=== PATIENT | female | born 1990 | race Caucasian/White ===

== ENCOUNTER 2016-12-11 22:05 | Inpatient (IN) | payer OTHER ==
[~2016-12-11] VITALS: Ht 170.2 cm; Wt 69.6 kg
[2016-12-11 22:05] VITALS: O2SAT 96
[2016-12-11] MEDS ORDERED: HYDROmorphone HCL PF 1 MG/ML VIAL ONE ×2 (22:08→22:12)
[2016-12-11] MEDS ORDERED: ONDANSETRON HCL 4 MG/2 ML VIAL ONE (22:09)
[2016-12-11] MEDS ORDERED: IOHEXOL 350 MG/ML 10 ML VIAL (for RAD DIAG) IV ONE (22:27)
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
[2016-12-11 22:36] LABS: AUTOMATED NEUTROPHIL # 10.2 TH/MM3 (1.8-7.7); BASOPHIL # 0.1 TH/MM3 (0-0.2); BASOPHIL % 0.4 % (0.0-2.0); EOSINOPHIL # 0.5 TH/MM3 (0-0.4); EOSINOPHIL % 3.3 % (0.0-4.0); HEMATOCRIT 34.2 % (35.0-46.0); HEMO FLAGS DIFF FINAL; LYMPH % 23.6 % (9.0-44.0); LYMPHOCYTE # 3.8 TH/MM3 (1.0-4.8); MEAN CELL VOLUME 84.2 FL (80.0-100.0); MEAN CORPUSCULAR HEMOGLOBIN 27.3 PG (27.0-34.0); MEAN CORPUSCULAR HGB CONC 32.5 % (32.0-36.0); MONO % 8.1 % (0.0-8.0); NEUT % 64.6 % (16.0-70.0); PLATELET COUNT 272 TH/MM3 (150-450); RED BLOOD COUNT 4.06 MIL/MM3 (4.00-5.30); RED CELL DISTRIBUTION WIDTH 13.2 % (11.6-17.2); WHITE BLOOD COUNT 15.9 TH/MM3 (4.0-11.0)
[2016-12-11 22:40] LABS: I-STAT POTASSIUM 3.4 MMOL/L (3.5-4.9); I-STAT SODIUM 143 MMOL/L (138-146)
[2016-12-11 22:46] LABS: APTT (PATIENT) 25.5 SEC (24.3-30.1); PROTHROMBIN TIME - PATIENT 10.7 SEC (9.8-11.6)
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
[2016-12-11 22:53] LABS: ALCOHOL LESS THAN 3 MG/DL (0-5)
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
[2016-12-11] MEDS ORDERED: SODIUM CHLORIDE 0.9% FLUSH 10 ML FLUSH IV FLUSH PRN (23:45)
[2016-12-11] MEDS ORDERED: NALOXONE HCL 0.4 MG/ML AMP IV PRN (23:45)
[2016-12-11] MEDS ORDERED: Post-op Orders (for Pharmacy) MISC XX ONE (23:45)
[2016-12-12] VITALS (10 sets, daily range): BP systolic 104–158; BP diastolic 58–94; PULSE 51–90; RESP 16–25; TEMP 97.2–98.8; O2SAT 94–100
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
[2016-12-12] MEDS: fentaNYL 25 MCG/HR PATCH T-DERMAL SCH (00:26)
[2016-12-12] MEDS: oxyCODONE/ACETAMINOPHEN 5 MG/325 MG TAB PO PRN ×4 (02:45→23:15)
[2016-12-12 06:05] LABS: AUTOMATED NEUTROPHIL # 5.7 TH/MM3 (1.8-7.7); BASOPHIL % 0.4 % (0.0-2.0); EOSINOPHIL # 0.1 TH/MM3 (0-0.4); EOSINOPHIL % 1.2 % (0.0-4.0); HEMO FLAGS DIFF FINAL; LYMPH % 23.9 % (9.0-44.0); LYMPHOCYTE # 2.3 TH/MM3 (1.0-4.8); MEAN CELL VOLUME 84.9 FL (80.0-100.0); MEAN CORPUSCULAR HEMOGLOBIN 27.7 PG (27.0-34.0); MEAN CORPUSCULAR HGB CONC 32.6 % (32.0-36.0); MONO % 14.2 % (0.0-8.0); NEUT % 60.3 % (16.0-70.0); PLATELET COUNT 250 TH/MM3 (150-450); RED BLOOD COUNT 4.01 MIL/MM3 (4.00-5.30); WHITE BLOOD COUNT 9.4 TH/MM3 (4.0-11.0)
[2016-12-12] MEDS ORDERED: SODIUM CHLOR 0.9% 1000 ML INJ 1,000 ML IV SCH (06:31)
[2016-12-12 06:32] LABS: BICARBONATE 25.9 MEQ/L (21.0-32.0); POTASSIUM 3.5 MEQ/L (3.5-5.1)
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
[2016-12-12] MEDS ORDERED: MISCELLANEOUS NURSING INFORMATION XX SCH (06:45)
[2016-12-12] MEDS ORDERED: RESP: ALBUTEROL 2.5 MG/IPRATROPIUM 0.5 MG NEB (PRN) INH (06:45)
[2016-12-12] MEDS: SODIUM CHLOR 0.9% 1000 ML INJ 1,000 ML IV SCH ×3 (08:00→13:50)
[2016-12-12] MEDS: SODIUM CHLORIDE 0.9% FLUSH 5 ML FLUSH IV FLUSH SCH ×2 (08:00→21:00)
[2016-12-12] MEDS: DOCUSATE SODIUM 50 MG/SENNA 8.6 MG TAB PO SCH ×2 (08:00→21:08)
[2016-12-12] MEDS ORDERED: SODIUM CHLORIDE 0.9% FLUSH 10 ML FLUSH IV FLUSH SCH (09:00)
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
[2016-12-12] MEDS ORDERED: KETAMINE HCL 500 MG/5 ML VIAL ONE (11:24)
[2016-12-12] MEDS ORDERED: PROPOFOL 200 MG/20 ML AMP IV ONE (12:00)
[2016-12-12] MEDS ORDERED: PHENYLEPH/NS 1000 MCG/10 ML SYR IV ONE (12:00)
[2016-12-12] MEDS ORDERED: ONDANSETRON HCL 4 MG/2 ML VIAL IV PUSH ONE (12:00)
[2016-12-12 12:05] LABS: CKMB 16.9 NG/ML (0.5-3.6)
[2016-12-12] MEDS ORDERED: SUGAMMADEX SODIUM 200 MG/2 ML VIAL IV PUSH ONE ×2 (12:19)
[2016-12-12] MEDS ORDERED: fentaNYL CITRATE 250 MCG/5 ML AMP ONE (12:56)
[2016-12-12] MEDS ORDERED: MIDAZOLAM HCL 2 MG/2 ML VIAL ONE (12:57)
--- NOTE | 2016-12-12 13:13 | OTSOAPIP ---
PATIENT IS OFF FLOOR FOR SURGERY. WILL FOLLOW UP WITH PATIENT TOMORROW FOR EVALUATION. Therapist: Lillian Sharif, OTR/L Signature on file
[2016-12-12] MEDS ORDERED: DO NOT ADM ANY ANTICOAGULANT DRUGS PRN (13:30)
--- NOTE | 2016-12-12 18:17 | PD.CAR.PN ---
CVT Progress Note Subjective/Hospital Course: Patient started developing early signs of compartment syndrome today in form of increased swelling, increased pain and decreased motion both out of proportion to the degree of injury. In addition patient started developing numbness and decreased sensation in the foot. Based on all this decision is made to go ahead with fasciotomy. Patient underwent successful 3 compartment fasciotomy Incisions are clean dressing is intact and Luis has been replaced. Patient has palpable dorsalis pedis and posterior tibial pulses and foot is warm Objective: Vital Signs Date Time Temp Pulse Resp B/P Pulse Ox O2 Delivery O2 Flow Rate FiO2 12/12/16 14:45 97.2 59 16 104/58 100 12/12/16 14:15 97.7 65 15 103/57 99 Nasal Cannula 2.5 12/12/16 13:45 62 15 108/57 99 Nasal Cannula 2.5 12/12/16 13:30 61 15 108/66 99 Nasal Cannula 2.5 12/12/16 13:15 67 15 113/63 96 Nasal Cannula 2.5 12/12/16 13:00 97 14 118/63 96 Nasal Cannula 2.5 12/12/16 12:45 82 12 118/63 100 Simple Mask 10 12/12/16 12:44 97.5 85 12 128/61 100 Simple Mask 10 12/12/16 10:00 75 12/12/16 09:03 98 21 12/12/16 08:00 97.8 83 22 158/94 94 12/12/16 08:00 51 12/12/16 07:00 95 Room Air 12/12/16 06:00 54 12/12/16 04:00 98.8 73 20 117/70 100 12/12/16 04:00 73 12/12/16 03:45 20 12/12/16 02:00 74 12/12/16 01:31 22 12/12/16 00:00 88 12/12/16 00:00 98.3 88 25 119/60 97 12/11/16 22:05 96 5.00 12/11/16 22:05 96 Nasal Cannula 5.00 Result Diagram: 12/12/16 0542 12/12/16 0542 Sidra Waddell MD Dec 12, 2016 18:17
[2016-12-12] MEDS: FAMOTIDINE 20 MG TAB PO SCH (21:07)
[2016-12-12] MEDS: MAGNESIUM HYDROXIDE SUSP 30 ML CUP PO SCH (21:07)
[2016-12-12] MEDS: MORPHINE SULFATE 4 MG/ML INJ IV PRN (21:08)
[2016-12-13] VITALS (7 sets, daily range): BP systolic 98–113; BP diastolic 56–65; PULSE 63–84; RESP 16–17; TEMP 96.2–98.7; O2SAT 99–100
[2016-12-13 01:16] LABS: CKMB 9.6 NG/ML (0.5-3.6)
[2016-12-13] MEDS: CHLORHEXIDINE GLUCONATE 2 % 1 PACK (2 CLOTHS) TOP SCH (02:35)
[2016-12-13] MEDS: SODIUM CHLOR 0.9% 1000 ML INJ 1,000 ML IV SCH ×2 (02:35→16:00)
[2016-12-13] MEDS: oxyCODONE/ACETAMINOPHEN 5 MG/325 MG TAB PO PRN ×5 (03:10→19:59)
--- NOTE | 2016-12-13 06:29 | PD.ORT.PN ---
Subjective Subjective Remarks Resting comfortably. No new complaints Objective Vitals Vital Signs Date Time Temp Pulse Resp B/P Pulse Ox O2 Delivery O2 Flow Rate FiO2 12/13/16 04:00 96.9 63 16 106/65 100 12/13/16 00:00 98.7 79 17 105/56 99 12/12/16 19:58 98.7 90 16 108/66 99 12/12/16 19:26 99 21 12/12/16 14:45 97.2 59 16 104/58 100 12/12/16 14:15 97.7 65 15 103/57 99 Nasal Cannula 2.5 12/12/16 13:45 62 15 108/57 99 Nasal Cannula 2.5 12/12/16 13:30 61 15 108/66 99 Nasal Cannula 2.5 12/12/16 13:15 67 15 113/63 96 Nasal Cannula 2.5 12/12/16 13:00 97 14 118/63 96 Nasal Cannula 2.5 12/12/16 12:45 82 12 118/63 100 Simple Mask 10 12/12/16 12:44 97.5 85 12 128/61 100 Simple Mask 10 12/12/16 10:00 75 12/12/16 09:03 98 21 12/12/16 08:00 97.8 83 22 158/94 94 12/12/16 08:00 51 12/12/16 07:00 95 Room Air I/O 12/12/16 12/12/16 12/12/16 12/13/16 12/13/16 12/13/16 07:00 15:00 23:00 07:00 15:00 23:00 Intake Total 800 ml 1623 ml 600 ml 360 ml Output Total 25 ml Balance 800 ml 1598 ml 600 ml 360 ml Intake Oral 400 ml 50 ml 600 ml 360 ml IV Total 400 ml 773 ml Other 800 ml Output Estimated Blood Loss 25 ml # Voids 1 2 2 1 # Bowel Movements 0 Result Diagram: 12/12/16 0542 12/12/16 0542 Objective Remarks Left lower extremity: No pain with hip motion. Compartments soft over thigh. Dressings intact over lower leg below knee compartments soft and mild drainage. Diminished sensation over dorsum of foot and toes. Intact sensation on plantar surface. Weak dorsiflexion. Good plantar flexion. Good capillary refills Assessment & Plan Assessment and Plan Fasciotomy left leg due to compartment syndrome by Dr. Oli Hanna will be signing off and Dr. Baird will be assuming continued care Adebayo Hodges Jr. Dec 13, 2016 06:29
[2016-12-13 07:05] LABS: AUTOMATED NEUTROPHIL # 3.8 TH/MM3 (1.8-7.7); BASOPHIL % 0.4 % (0.0-2.0); EOSINOPHIL # 0.4 TH/MM3 (0-0.4); EOSINOPHIL % 4.7 % (0.0-4.0); HEMATOCRIT 37.2 % (35.0-46.0); HEMO FLAGS DIFF FINAL; LYMPH % 29.2 % (9.0-44.0); LYMPHOCYTE # 2.2 TH/MM3 (1.0-4.8); MEAN CORPUSCULAR HEMOGLOBIN 27.8 PG (27.0-34.0); MEAN CORPUSCULAR HGB CONC 32.8 % (32.0-36.0); MONO % 15.4 % (0.0-8.0); NEUT % 50.3 % (16.0-70.0); PLATELET COUNT 256 TH/MM3 (150-450); RED BLOOD COUNT 4.38 MIL/MM3 (4.00-5.30); RED CELL DISTRIBUTION WIDTH 13.1 % (11.6-17.2); WHITE BLOOD COUNT 7.6 TH/MM3 (4.0-11.0)
[2016-12-13 07:25] LABS: ALT (GPT) 27 U/L (10-53); ANION GAP 9 MEQ/L (5-15); AST (GOT) 42 U/L (15-37); BICARBONATE 26.4 MEQ/L (21.0-32.0); BLOOD UREA NITROGEN 3 MG/DL (7-18); CHLORIDE 105 MEQ/L (98-107); GLOMERULAR FILTRATION RATE 133 ML/MIN (>89); POTASSIUM 3.5 MEQ/L (3.5-5.1); SODIUM (NA) 140 MEQ/L (136-145)
[2016-12-13 07:40] LABS: ALKALINE PHOSPHATASE 42 U/L (45-117); CREATINE KINASE 1148 U/L (26-192); TOTAL BILIRUBIN ADULT 0.7 MG/DL (0.2-1.0)
[2016-12-13 08:08] LABS: CKMB 6.1 NG/ML (0.5-3.6)
[2016-12-13] MEDS: DOCUSATE SODIUM 50 MG/SENNA 8.6 MG TAB PO SCH ×2 (09:35→21:27)
[2016-12-13] MEDS: GABAPENTIN 300 MG CAP PO SCH ×3 (09:35→19:58)
[2016-12-13] MEDS: LACTULOSE SYRUP 20 GM/30 ML CUP PO SCH (09:35)
[2016-12-13] MEDS: MORPHINE SULFATE 4 MG/ML INJ IV PRN (09:35)
[2016-12-13] MEDS: SODIUM CHLORIDE 0.9% FLUSH 5 ML FLUSH IV FLUSH SCH ×2 (09:36→21:00)
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
[2016-12-13] MEDS: ENOXAPARIN SODIUM 30 MG/0.3 ML SYRINGE SQ SCH (13:45)
[2016-12-13] MEDS ORDERED: SENN1TAB PO (14:28)
[2016-12-13] MEDS ORDERED: MAGN400S PO (14:28)
[2016-12-13] MEDS: KETOROLAC TROMETHAMINE 30 MG/ML (IVP) VIAL IV PUSH SCH ×3 (15:41→23:58)
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
[2016-12-13] MEDS: FAMOTIDINE 20 MG TAB PO SCH (21:26)
[2016-12-13] MEDS: MAGNESIUM HYDROXIDE SUSP 30 ML CUP PO SCH (21:26)
[2016-12-14] VITALS (7 sets, daily range): BP systolic 94–122; BP diastolic 58–64; PULSE 72–88; RESP 16–18; TEMP 97.1–99.8; O2SAT 98–100
[2016-12-14] MEDS: SODIUM CHLOR 0.9% 1000 ML INJ 1,000 ML IV SCH ×3 (02:00→22:00)
[2016-12-14] MEDS: ENOXAPARIN SODIUM 30 MG/0.3 ML SYRINGE SQ SCH ×2 (02:42→13:28)
[2016-12-14] MEDS: CHLORHEXIDINE GLUCONATE 2 % 1 PACK (2 CLOTHS) TOP SCH (03:29)
[2016-12-14] MEDS: oxyCODONE/ACETAMINOPHEN 5 MG/325 MG TAB PO PRN ×3 (04:39→22:13)
[2016-12-14] MEDS: KETOROLAC TROMETHAMINE 30 MG/ML (IVP) VIAL IV PUSH SCH ×3 (06:31→17:32)
[2016-12-14] MEDS: SODIUM CHLORIDE 0.9% FLUSH 5 ML FLUSH IV FLUSH SCH ×2 (09:00→22:12)
[2016-12-14 10:08] LABS: HEMATOCRIT 33.7 % (35.0-46.0); MEAN CELL VOLUME 83.6 FL (80.0-100.0); MEAN CORPUSCULAR HEMOGLOBIN 28.1 PG (27.0-34.0); MEAN CORPUSCULAR HGB CONC 33.6 % (32.0-36.0); PLATELET COUNT 261 TH/MM3 (150-450); RED BLOOD COUNT 4.03 MIL/MM3 (4.00-5.30); RED CELL DISTRIBUTION WIDTH 12.9 % (11.6-17.2); REVIEW FLAG FINAL; WHITE BLOOD COUNT 8.9 TH/MM3 (4.0-11.0)
[2016-12-14] MEDS: GABAPENTIN 300 MG CAP PO SCH ×3 (10:16→17:31)
[2016-12-14] MEDS: DOCUSATE SODIUM 50 MG/SENNA 8.6 MG TAB PO SCH ×2 (10:16→22:12)
[2016-12-14] MEDS: LACTULOSE SYRUP 20 GM/30 ML CUP PO SCH (10:17)
[2016-12-14 10:26] LABS: BICARBONATE 27.2 MEQ/L (21.0-32.0); POTASSIUM 3.8 MEQ/L (3.5-5.1)
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
[2016-12-14] MEDS: MAGNESIUM HYDROXIDE SUSP 30 ML CUP PO SCH (22:12)
[2016-12-14] MEDS: FAMOTIDINE 20 MG TAB PO SCH (22:12)
[2016-12-15] MEDS: KETOROLAC TROMETHAMINE 30 MG/ML (IVP) VIAL IV PUSH SCH ×5 (00:07→23:43)
[2016-12-15] MEDS: fentaNYL 25 MCG/HR PATCH T-DERMAL SCH (00:08)
[2016-12-15] MEDS: REMOVE OLD PATCH T-DERMAL SCH (00:08)
[2016-12-15 00:20] VITALS: BP 108/57; PULSE 79; RESP 16; TEMP 98; O2SAT 98
[2016-12-15] MEDS: ENOXAPARIN SODIUM 30 MG/0.3 ML SYRINGE SQ SCH ×2 (01:34→13:36)
[2016-12-15] MEDS: CHLORHEXIDINE GLUCONATE 2 % 1 PACK (2 CLOTHS) TOP SCH (04:00)
[2016-12-15] MEDS: oxyCODONE/ACETAMINOPHEN 5 MG/325 MG TAB PO PRN ×4 (05:50→23:43)
[2016-12-15 08:00] VITALS: BP 102/58; PULSE 81; RESP 18; TEMP 97.4; O2SAT 99
[2016-12-15] MEDS: SODIUM CHLOR 0.9% 1000 ML INJ 1,000 ML IV SCH ×2 (08:00→17:38)
[2016-12-15] MEDS: DOCUSATE SODIUM 50 MG/SENNA 8.6 MG TAB PO SCH ×2 (09:02→21:08)
[2016-12-15] MEDS: SODIUM CHLORIDE 0.9% FLUSH 5 ML FLUSH IV FLUSH SCH ×2 (09:02→21:00)
[2016-12-15] MEDS: GABAPENTIN 300 MG CAP PO SCH ×3 (09:02→17:38)
[2016-12-15] MEDS: LACTULOSE SYRUP 20 GM/30 ML CUP PO SCH (09:02)
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
[2016-12-15 12:00] VITALS: BP 115/63; PULSE 76; RESP 18; TEMP 96.9; O2SAT 100
[2016-12-15] MEDS: HYDROmorphone HCL PF 1 MG/ML VIAL IV PUSH PRN ×2 (13:51→17:29)
[2016-12-15] MEDS: SODIUM CHLORIDE 0.9% FLUSH 5 ML FLUSH IV FLUSH PRN ×2 (13:51→17:29)
[2016-12-15 14:19] VITALS: O2SAT 96
[2016-12-15 16:00] VITALS: BP 107/59; PULSE 82; RESP 18; TEMP 96.7; O2SAT 99
[2016-12-15] MEDS: ONDANSETRON HCL 4 MG/2 ML VIAL IV PRN (17:38)
[2016-12-15 20:10] VITALS: BP_SYST 107; BP_SYST 158; BP_DIAS 65; BP_DIAS 72; PULSE 78; PULSE 94; RESP 16; RESP 17; TEMP 96.8; TEMP 98.8; O2SAT 100; O2SAT 99
[2016-12-15] MEDS: FAMOTIDINE 20 MG TAB PO SCH (21:07)
[2016-12-15] MEDS: MAGNESIUM HYDROXIDE SUSP 30 ML CUP PO SCH (21:08)
[2016-12-16] VITALS (7 sets, daily range): BP systolic 103–111; BP diastolic 51–58; PULSE 78–124; RESP 17–19; TEMP 97.8–101.6; O2SAT 92–100
[2016-12-16] MEDS ORDERED: INSULIN HUMAN REGULAR 1,000 UNITS/10 ML VIAL SQ PRN (00:15)
[2016-12-16] MEDS ORDERED: SODIUM CHLORID 0.9% 500 ML IV PRN (00:15)
[2016-12-16] MEDS ORDERED: LACTATED RINGER'S 1000 ML IV PRN (00:15)
[2016-12-16] MEDS ORDERED: POVIDONE IODINE 5% (ANTISEPSIS KIT) 4 APPLICATIONS EACH NARE PRN (00:15)
[2016-12-16] MEDS ORDERED: METOPROLOL TARTRATE 25 MG TAB PO PRN (00:15)
[2016-12-16] MEDS ORDERED: CHLORHEXIDINE GLUCONATE 2 % 1 PACK (2 CLOTHS) TOPICAL PRN (00:15)
[2016-12-16] MEDS: ENOXAPARIN SODIUM 30 MG/0.3 ML SYRINGE SQ SCH ×2 (01:26→13:30)
[2016-12-16] MEDS: CHLORHEXIDINE GLUCONATE 2 % 1 PACK (2 CLOTHS) TOP SCH (04:00)
[2016-12-16] MEDS: SODIUM CHLOR 0.9% 1000 ML INJ 1,000 ML IV SCH ×2 (04:00→14:05)
[2016-12-16] MEDS: KETOROLAC TROMETHAMINE 30 MG/ML (IVP) VIAL IV PUSH SCH ×3 (06:29→18:08)
[2016-12-16] MEDS: ONDANSETRON HCL 4 MG/2 ML VIAL IV PRN ×2 (06:29→19:57)
[2016-12-16] MEDS: HYDROmorphone HCL PF 1 MG/ML VIAL IV PUSH PRN ×3 (06:46→19:57)
[2016-12-16] MEDS: LACTULOSE SYRUP 20 GM/30 ML CUP PO SCH (08:49)
[2016-12-16] MEDS: GABAPENTIN 300 MG CAP PO SCH ×3 (08:49→18:07)
[2016-12-16] MEDS: SODIUM CHLORIDE 0.9% FLUSH 5 ML FLUSH IV FLUSH SCH ×2 (08:49→19:58)
[2016-12-16] MEDS: DOCUSATE SODIUM 50 MG/SENNA 8.6 MG TAB PO SCH ×2 (08:49→19:59)
[2016-12-16] MEDS ORDERED: VANCOMYCIN HCL 1000 MG VIAL ONE (11:11)
[2016-12-16] MEDS ORDERED: ceFAZolin INJ 1,000 MG VIAL IV ONE (11:13)
[2016-12-16] MEDS ORDERED: PROPOFOL 200 MG/20 ML AMP IV ONE (12:00)
[2016-12-16] MEDS ORDERED: ONDANSETRON HCL 4 MG/2 ML VIAL IV PUSH ONE (12:00)
[2016-12-16] MEDS ORDERED: *HYDROmorphone PF 1 MG VIAL PERIprocedural Use ONLY ONE (12:30)
[2016-12-16] MEDS ORDERED: *MEPERIDINE 25 MG INJ VIAL PERIprocedural Use ONLY ONE (12:35)
[2016-12-16] MEDS ORDERED: DO NOT ADM ANY ANTICOAGULANT DRUGS PRN (13:45)
[2016-12-16] MEDS: FAMOTIDINE 20 MG TAB PO SCH (19:58)
[2016-12-16] MEDS: MAGNESIUM HYDROXIDE SUSP 30 ML CUP PO SCH (19:59)
[2016-12-17] VITALS (7 sets, daily range): BP systolic 100–111; BP diastolic 55–60; PULSE 73–90; RESP 16–18; TEMP 96.7–98.7; O2SAT 98–100
[2016-12-17] MEDS: oxyCODONE/ACETAMINOPHEN 5 MG/325 MG TAB PO PRN ×6 (00:09→21:38)
[2016-12-17] MEDS: KETOROLAC TROMETHAMINE 30 MG/ML (IVP) VIAL IV PUSH SCH ×4 (00:09→17:15)
[2016-12-17] MEDS: ENOXAPARIN SODIUM 30 MG/0.3 ML SYRINGE SQ SCH ×2 (00:10→17:17)
[2016-12-17] MEDS: CHLORHEXIDINE GLUCONATE 2 % 1 PACK (2 CLOTHS) TOP SCH (02:50)
[2016-12-17] MEDS: ONDANSETRON HCL 4 MG/2 ML VIAL IV PRN (05:12)
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
[2016-12-17] MEDS: SODIUM CHLORIDE 0.9% FLUSH 5 ML FLUSH IV FLUSH SCH ×2 (09:00→21:00)
[2016-12-17] MEDS: SODIUM CHLOR 0.9% 1000 ML INJ 1,000 ML IV SCH ×3 (10:00→20:00)
[2016-12-17] MEDS: GABAPENTIN 300 MG CAP PO SCH ×3 (10:38→18:00)
[2016-12-17] MEDS: DOCUSATE SODIUM 50 MG/SENNA 8.6 MG TAB PO SCH ×2 (10:39→21:40)
[2016-12-17] MEDS: LACTULOSE SYRUP 20 GM/30 ML CUP PO SCH (10:40)
--- NOTE | 2016-12-17 15:29 | HHI.PR ---
Subjective Subjective Notes pt lyiny in bed no new complaint Objective Vitals/I&O Vital Signs Date Time Temp Pulse Resp B/P Pulse Ox O2 Delivery O2 Flow Rate FiO2 12/17/16 14:23 98 21 12/17/16 12:00 96.9 90 18 111/55 12/16/16 18:04 Nasal Cannula 2.00 Radiology Last 48 hours Impressions Knee X-Ray 12/11/162228 Signed Impressions: Service Date/Time: Sunday, December 11, 2016 23:44 - CONCLUSION: Nondisplaced proximal fibular fracture. Dieudonne Ledesma MD Foot X-Ray 12/11/162228 Signed Impressions: Service Date/Time: Sunday, December 11, 2016 23:51 - CONCLUSION: Negative exam. Dieudonne Ledesma MD Femur X-Ray 12/11/162228 Signed Impressions: Service Date/Time: Sunday, December 11, 2016 23:40 - CONCLUSION: Negative exam. Dieudonne Ledesma MD Lumbar Spine CT 12/11/162218 Signed Impressions: Service Date/Time: Sunday, December 11, 2016 22:25 - CONCLUSION: No evidence of fracture. Anant Frank MD Abdomen/Pelvis CT 12/11/162218 Signed Impressions: Service Date/Time: Sunday, December 11, 2016 22:25 - CONCLUSION: No acute findings in the abdomen and pelvis. Anant Frank MD Pelvis X-Ray 12/11/162205 Signed Impressions: Service Date/Time: Sunday, December 11, 2016 22:03 - CONCLUSION: No gross evidence of fracture. Anant Frank MD Chest X-Ray 12/11/162205 Signed Impressions: Service Date/Time: Sunday, December 11, 2016 22:03 - CONCLUSION: No acute cardiopulmonary disease on limited single view of the chest. Anant Frank MD Abdomen: Non-distended Extremities: Perfused A/P Problem List: (1) Crushing injury of left leg (2) Left fibular fracture Assessment and Plan patient with crush injury to leg s/p fasciotomy partial closure yesterday now with wound vac Vac to be changed in beginning of week Cont pain management Problem Qualifiers (1) Crushing injury of left leg: Qualified Code: S87.82XA - Crushing injury of left lower extremity, initial encounter (2) Left fibular fracture: Qualified Code: S82.832A - Closed fracture of proximal end of left fibula, unspecified fracture morphology, initial encounter Augusto Jacobsen MD Dec 17, 2016 15:29
[2016-12-17] MEDS: POLYETHYLENE GLYCOL 17 GM PKG PO PRN (19:13)
[2016-12-17] MEDS ORDERED: SIMETHICONE 80 MG CHEWABLE TAB PO PRN (19:15)
[2016-12-17] MEDS: MAGNESIUM HYDROXIDE SUSP 30 ML CUP PO SCH (21:39)
[2016-12-17] MEDS: FAMOTIDINE 20 MG TAB PO SCH (21:40)
[2016-12-18] MEDS: REMOVE OLD PATCH T-DERMAL SCH
[2016-12-18 00:15] VITALS: BP 99/56; PULSE 92; RESP 16; TEMP 99.5; O2SAT 99
[2016-12-18] MEDS: KETOROLAC TROMETHAMINE 30 MG/ML (IVP) VIAL IV PUSH SCH ×2 (00:57→06:00)
[2016-12-18] MEDS: fentaNYL 25 MCG/HR PATCH T-DERMAL SCH (00:59)
[2016-12-18] MEDS: ENOXAPARIN SODIUM 30 MG/0.3 ML SYRINGE SQ SCH ×2 (00:59→13:30)
[2016-12-18] MEDS: CHLORHEXIDINE GLUCONATE 2 % 1 PACK (2 CLOTHS) TOP SCH (01:00)
[2016-12-18] MEDS: oxyCODONE/ACETAMINOPHEN 5 MG/325 MG TAB PO PRN ×3 (01:32→23:19)
[2016-12-18 04:10] VITALS: BP 96/51; PULSE 80; RESP 16; TEMP 97.9; O2SAT 98
[2016-12-18] MEDS: SODIUM CHLOR 0.9% 1000 ML INJ 1,000 ML IV SCH ×2 (06:00→16:00)
[2016-12-18 08:00] VITALS: BP 95/55; PULSE 93; RESP 17; TEMP 98.1; O2SAT 100
[2016-12-18] MEDS: GABAPENTIN 300 MG CAP PO SCH ×3 (09:00→17:02)
[2016-12-18] MEDS: DOCUSATE SODIUM 50 MG/SENNA 8.6 MG TAB PO SCH ×2 (09:00→20:31)
[2016-12-18] MEDS: LACTULOSE SYRUP 20 GM/30 ML CUP PO SCH (09:00)
[2016-12-18] MEDS: SODIUM CHLORIDE 0.9% FLUSH 5 ML FLUSH IV FLUSH SCH ×2 (09:00→20:31)
[2016-12-18 12:00] VITALS: BP 114/61; PULSE 90; RESP 18; TEMP 97.3; O2SAT 98
[2016-12-18 16:00] VITALS: BP 119/56; PULSE 92; RESP 17; TEMP 97.9; O2SAT 99
[2016-12-18 20:25] VITALS: BP 108/54; PULSE 109; RESP 17; TEMP 98.8; O2SAT 100
[2016-12-18] MEDS: FAMOTIDINE 20 MG TAB PO SCH (20:31)
[2016-12-18] MEDS: MAGNESIUM HYDROXIDE SUSP 30 ML CUP PO SCH (20:31)
[2016-12-18] MEDS: HYDROmorphone HCL PF 1 MG/ML VIAL IV PUSH PRN (21:50)
[2016-12-18] MEDS: ONDANSETRON HCL 4 MG/2 ML VIAL IV PRN (21:51)
[2016-12-19 00:19] VITALS: BP 102/56; PULSE 92; RESP 17; TEMP 99.6; O2SAT 97
[2016-12-19] MEDS: ENOXAPARIN SODIUM 30 MG/0.3 ML SYRINGE SQ SCH ×2 (00:43→14:25)
[2016-12-19] MEDS: SODIUM CHLOR 0.9% 1000 ML INJ 1,000 ML IV SCH ×2 (00:45→12:00)
[2016-12-19] MEDS: CHLORHEXIDINE GLUCONATE 2 % 1 PACK (2 CLOTHS) TOP SCH (01:59)
[2016-12-19] MEDS: HYDROmorphone HCL PF 1 MG/ML VIAL IV PUSH PRN ×5 (03:03→22:13)
[2016-12-19 04:30] VITALS: BP 97/57; PULSE 85; RESP 17; TEMP 97.8; O2SAT 99
[2016-12-19] MEDS: oxyCODONE/ACETAMINOPHEN 5 MG/325 MG TAB PO PRN ×4 (04:43→18:46)
[2016-12-19 08:00] VITALS: BP 97/56; PULSE 75; RESP 16; TEMP 96.1; O2SAT 98
[2016-12-19] MEDS: SODIUM CHLORIDE 0.9% FLUSH 5 ML FLUSH IV FLUSH SCH ×2 (09:00→22:04)
[2016-12-19] MEDS: LACTULOSE SYRUP 20 GM/30 ML CUP PO SCH (09:00)
[2016-12-19] MEDS: DOCUSATE SODIUM 50 MG/SENNA 8.6 MG TAB PO SCH ×2 (09:00→22:04)
[2016-12-19] MEDS: GABAPENTIN 300 MG CAP PO SCH (09:00)
[2016-12-19 12:00] VITALS: BP 102/56; PULSE 68; RESP 16; TEMP 96.9; O2SAT 96
--- NOTE | 2016-12-19 13:36 | HHI.PR ---
Subjective Subjective Notes Complains of worsening left calf pain LUE Fentanyl patch not in place- RN to investigate Objective Vitals/I&O Vital Signs Date Time Temp Pulse Resp B/P (MAP) Pulse Ox O2 Delivery O2 Flow Rate FiO2 12/19/16 04:30 97.8 85 17 97/57 (70) 99 12/17/16 14:23 21 12/16/16 18:04 Nasal Cannula 2.00 Labs Laboratory Tests Test 12/11/16 22:07 12/13/16 06:19 12/14/16 08:00 Bedside Hemoglobin 11.9 G/DL Bedside Hematocrit 35.0 % Prothrombin Time 10.7 SEC Prothromb Time International Ratio 1.0 RATIO Activated Partial Thromboplast Time 25.5 SEC Bedside Sodium 143 MMOL/L Bedside Potassium 3.4 MMOL/L Bedside Chloride 105 MMOL/L Bedside Blood Urea Nitrogen LESS THAN 3 MG/DL Bedside Creatinine 0.6 MG/DL Bedside Glucose 96 MG/DL Ethyl Alcohol Level LESS THAN 3 MG/DL Neutrophils (%) (Auto) 50.3 % Lymphocytes (%) (Auto) 29.2 % Monocytes (%) (Auto) 15.4 % Eosinophils (%) (Auto) 4.7 % Basophils (%) (Auto) 0.4 % Neutrophils # (Auto) 3.8 TH/MM3 Lymphocytes # (Auto) 2.2 TH/MM3 Monocytes # (Auto) 1.2 TH/MM3 Eosinophils # (Auto) 0.4 TH/MM3 Basophils # (Auto) 0.0 TH/MM3 CBC Comment DIFF FINAL Differential Comment Blood Urea Nitrogen 3 MG/DL 8 MG/DL Creatinine 0.55 MG/DL 0.57 MG/DL Random Glucose 78 MG/DL 93 MG/DL Total Protein 6.6 GM/DL Albumin 3.1 GM/DL Calcium Level 8.2 MG/DL 8.1 MG/DL Alkaline Phosphatase 42 U/L Aspartate Amino Transf (AST/SGOT) 42 U/L Alanine Aminotransferase (ALT/SGPT) 27 U/L Total Bilirubin 0.7 MG/DL Sodium Level 140 MEQ/L 137 MEQ/L Potassium Level 3.5 MEQ/L 3.8 MEQ/L Chloride Level 105 MEQ/L 103 MEQ/L Carbon Dioxide Level 26.4 MEQ/L 27.2 MEQ/L Total Creatine Kinase 1148 U/L Creatine Kinase MB 6.1 NG/ML Creatine Kinase MB % 0.5 % White Blood Count 8.9 TH/MM3 Red Blood Count 4.03 MIL/MM3 Hemoglobin 11.3 GM/DL Hematocrit 33.7 % Mean Corpuscular Volume 83.6 FL Mean Corpuscular Hemoglobin 28.1 PG Mean Corpuscular Hemoglobin Concent 33.6 % Red Cell Distribution Width 12.9 % Platelet Count 261 TH/MM3 Mean Platelet Volume 7.9 FL Anion Gap 7 MEQ/L Estimat Glomerular Filtration Rate 127 ML/MIN Radiology Last 48 hours Impressions Knee X-Ray 12/11/162228 Signed Impressions: Service Date/Time: Sunday, December 11, 2016 23:44 - CONCLUSION: Nondisplaced proximal fibular fracture. Dieudonne Ledesma MD Foot X-Ray 12/11/162228 Signed Impressions: Service Date/Time: Sunday, December 11, 2016 23:51 - CONCLUSION: Negative exam. Dieudonne Ledesma MD Femur X-Ray 12/11/162228 Signed Impressions: Service Date/Time: Sunday, December 11, 2016 23:40 - CONCLUSION: Negative exam. Dieudonne Ledesma MD Lumbar Spine CT 12/11/162218 Signed Impressions: Service Date/Time: Sunday, December 11, 2016 22:25 - CONCLUSION: No evidence of fracture. nAant Frank MD Abdomen/Pelvis CT 12/11/162218 Signed Impressions: Service Date/Time: Sunday, December 11, 2016 22:25 - CONCLUSION: No acute findings in the abdomen and pelvis. Anant Frank MD Pelvis X-Ray 12/11/162205 Signed Impressions: Service Date/Time: Sunday, December 11, 2016 22:03 - CONCLUSION: No gross evidence of fracture. Anant Frank MD Chest X-Ray 12/11/162205 Signed Impressions: Service Date/Time: Sunday, December 11, 2016 22:03 - CONCLUSION: No acute cardiopulmonary disease on limited single view of the chest. Anant Frank MD Narrative Exam GENERAL: 26 year old well-nourished, well developed female lying in bed in no distress. SKIN: Warm and dry. HEAD: Normocephalic. ENT: No nasal bleeding or discharge. Mucous membranes pink and moist. NECK: Trachea midline. No JVD. CARDIOVASCULAR: Regular rate and rhythm. RESPIRATORY: No accessory muscle use. Lungs clear to auscultation. Breath sounds equal bilaterally. GASTROINTESTINAL: Abdomen soft, non-tender, nondistended. + BS. MUSCULOSKELETAL: Extremities without cyanosis, or edema. LEFT lateral calf with wound vac sponge stapled in place- proximal sutures C/D/I. LEFT medial calf sutures C/D/I. Mild erythema noted at incision sites. NEUROLOGICAL: Awake and alert. Normal speech. A/P Problem List: (1) Crushing injury of left leg ICD Codes: S87.82XA - Crushing injury of left lower leg, initial encounter Status: Acute (2) Left fibular fracture ICD Codes: S82.402A - Unspecified fracture of shaft of left fibula, initial encounter for closed fracture Status: Acute Assessment and Plan INJURIES: LEFT hairline fx of proximal fibula ? LEFT lateral malleolus fx 12/12: LEFT Lower extremity Fasciotomy 12/16: LEFT lower extremity washout, partial closure and wound vac placement Diet: Regular Pulm: IS Pain: Percocet. Dilaudid IV. Fentanyl patch and Neurontin increased. Activity: OOB. PT and OT ordered. GI: Pepcid HS Bowel: Char-colace BID. MOM. Lactulose. LBM: 12/19 DVT: SCD's, Lovenox 30 BID LEFT hairline fx of proximal fibula, Questionable LEFT lateral malleolus fx Orthopedics consulted and cleared for discharge 12/12: LEFT Lower extremity Fasciotomy 12/16: Washout and closure of left leg fasciotomy, wound VAC placement Wound VAC discontinued today, Daily wet-to-dry dressing changes to left lower extremity Pain control OOB- PT and OT WBAT LLE Plan of care discussed with patient and father at bedside. Case management consulted to assist discharge planning. Plan to DC 1-2 days when pain better controlled. Attending Statement patient seen at bedside c/o calf pain c/o lip cold sore replace patch acyclovir Attestation The exam, history, and the medical decision-making described in the above note were completed with the assistance of the mid-level provider. I reviewed and agree with the findings presented. I attest that I had a [id number] encounter with the patient on the same day, and personally performed and documented my assessment and findings in the medical record. Problem Qualifiers (1) Crushing injury of left leg: (2) Left fibular fracture: Earl Forbes Dec 19, 2016 13:36 Herbert Diaz MD Dec 22, 2016 21:22
[2016-12-19] MEDS: ACYCLOVIR 200 MG CAP PO SCH ×3 (14:00→22:04)
[2016-12-19 16:00] VITALS: BP 125/75; PULSE 103; RESP 16; TEMP 96; O2SAT 95
[2016-12-19] MEDS: GABAPENTIN 400 MG CAP PO SCH (17:49)
[2016-12-19] MEDS: POLYETHYLENE GLYCOL 17 GM PKG PO PRN (17:56)
[2016-12-19] MEDS ORDERED: REMOVE OLD DURAGESIC (FENTANYL) PATCH T-DERMAL SCH (20:00)
[2016-12-19] MEDS ORDERED: fentaNYL 50 MCG/HR PATCH T-DERMAL SCH (20:00)
[2016-12-19 20:20] VITALS: BP 99/56; PULSE 94; RESP 18; TEMP 96.4; O2SAT 100
[2016-12-19] MEDS: MAGNESIUM HYDROXIDE SUSP 30 ML CUP PO SCH (22:03)
[2016-12-19] MEDS: FAMOTIDINE 20 MG TAB PO SCH (22:04)
[2016-12-20 00:20] VITALS: BP 106/56; PULSE 85; RESP 18; TEMP 96.8; O2SAT 97
[2016-12-20] MEDS: oxyCODONE/ACETAMINOPHEN 5 MG/325 MG TAB PO PRN ×3 (02:45→12:46)
[2016-12-20] MEDS: ENOXAPARIN SODIUM 30 MG/0.3 ML SYRINGE SQ SCH ×2 (02:45→12:45)
[2016-12-20] MEDS: ACYCLOVIR 200 MG CAP PO SCH ×3 (06:06→12:46)
[2016-12-20 08:00] VITALS: BP 93/55; PULSE 82; RESP 18; TEMP 96.6; O2SAT 99
[2016-12-20] MEDS: DOCUSATE SODIUM 50 MG/SENNA 8.6 MG TAB PO SCH (08:40)
[2016-12-20] MEDS: GABAPENTIN 400 MG CAP PO SCH ×2 (08:40→12:46)
[2016-12-20] MEDS: SODIUM CHLORIDE 0.9% FLUSH 5 ML FLUSH IV FLUSH SCH (08:41)
[2016-12-20] MEDS: LACTULOSE SYRUP 20 GM/30 ML CUP PO SCH (08:41)
[2016-12-20 12:00] VITALS: BP 103/64; PULSE 78; RESP 18; TEMP 96; O2SAT 100
[2016-12-20] MEDS ORDERED: FENT50T T-DERMAL (12:30)
[2016-12-20] MEDS ORDERED: ENOX30P SQ (12:30)
[2016-12-20] MEDS ORDERED: OXYC1TAB63 PO (12:30)
[2016-12-20] MEDS ORDERED: NEUR400C PO (12:30)
[2016-12-20] MEDS ORDERED: ACYC200C66 PO (12:30)
[2016-12-20] MEDS ORDERED: Lactulose PO (12:30)
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
[2016-12-20] MEDS ORDERED: OXYC-395 PO (14:46)
[2016-12-29] MEDS ORDERED: WHEEMIS3 (11:25)
[2016-12-29] MEDS ORDERED: cane (11:25)
[2016-12-29] MEDS ORDERED: shower chair (11:25)
[2017-01-03] MEDS ORDERED: SENN1TAB PO (10:09)
[2017-01-03] MEDS ORDERED: LYRI75CA PO (10:09)
[2017-01-03] MEDS ORDERED: FAMO20TA2 PO (10:09)
[2017-01-03] MEDS ORDERED: NEUR300C PO (10:09)
[2017-01-03] MEDS ORDERED: OXYC1TAB63 PO (10:09)
== END 2016-12-20 16:12 | DRG 501 ==
LOC: NEPI 22:05 → NEDA 22:38 → EDBD 22:38 → N03A 12-12 00:02 → N07B 12-12 13:11 → N06B 12-12 13:48
PROVIDERS: ADMIT Surgery; ATTEND Surgery
PROC: 0KBT0ZX Excision of Left Lower Leg Muscle, Open Approach, Diagnostic (ICD-10-PCS; 2016-12-12)
PROC: 0KNT0ZZ Release Left Lower Leg Muscle, Open Approach (ICD-10-PCS; principal; 2016-12-12 11:22)
PROC: 0JQP0ZZ Repair Left Lower Leg Subcutaneous Tissue and Fascia, Open Approach (ICD-10-PCS; 2016-12-16)
DX: S82.62XA Displaced fracture of lateral malleolus of left fibula, initial encounter for closed fracture (principal); T79.A22A Traumatic compartment syndrome of left lower extremity, initial encounter; V84.9XXA Unspecified occupant of special agricultural vehicle injured in nontraffic accident, initial encounter; Z87.891 Personal history of nicotine dependence; S87.82XA Crushing injury of left lower leg, initial encounter; S82.832A Other fracture of upper and lower end of left fibula, initial encounter for closed fracture
CPT/HCPCS: 71010; 72131; 72170; 73551; 73552; 73564; 73630; 74177; 80048; 80053; 80307; 82435; 82550; 82552; 82565; 82947; 84132; 84295; 84520; 85025; 85027; 85610; 85730; 86850; 86900; 86901; 86920; 88305; 90471; 94150; 96374; 96375; 99291; G0390; J0690; J1170; J1650; J1885; J2175; J2250; J2270; J2370; J2405; J3010; J3370; J7030; Q9967